=== PATIENT | female | born 1995 | race Caucasian/White ===

== ENCOUNTER → 2017-06-08 | Outpatient (CLI) | payer OTHER ==
[2017-06-08 06:39] LABS: BASO % 0.7 % (0.0-1.0); EOS # 0.1 K/mm3 (0.0-0.50); EOS % 2.7 % (0.0-3.0); LARGE UNSTAINED CELL # 0.1 K/mm3 (0.0-0.4); LARGE UNSTAINED CELL % 1.8 % (0.0-4.0); LYMPH # 2.4 K/mm3 (1.5-6.5); LYMPH % 45.6 % (24.0-44.0); MEAN CORPUSCULAR HEMOGLOBIN 30.4 pg (27.0-33.0); MEAN CORPUSCULAR HGB CONC 34.1 g/dl (32.0-36.5); MEAN CORPUSCULAR VOLUME 89.3 fl (80.0-96.0); MONO # 0.3 K/mm3 (0.0-0.8); MONO % 4.9 % (0.0-5.0); NEUTROPHILS # 2.3 K/mm3 (1.8-7.7); NEUTROPHILS % 44.4 % (36.0-66.0); PLATELET COUNT, AUTOMATED 226 k/mm3 (150-450); RED CELL DISTRIBUTION WIDTH 13.4 % (11.5-14.5); WHITE BLOOD COUNT 5.2 K/mm3 (4.0-10.0)
[2017-06-08 07:31] LABS: ANION GAP 7 MEQ/L (8-16); BLOOD UREA NITROGEN 12 MG/DL (7-18); CARBON DIOXIDE LEVEL 28 MEQ/L (21-32); CHLORIDE LEVEL 106 MEQ/L (98-107); FREE T4 1.04 NG/DL (0.76-1.46); GLOMERULAR FILTRATION RATE > 60.0 (>60); GLUCOSE, FASTING 82 MG/DL (70-105); POTASSIUM SERUM 4.3 MEQ/L (3.5-5.1); SODIUM LEVEL 141 MEQ/L (136-145)
[2017-06-10 00:07] LABS: Lyme Disease IgG/IgM Antibodie <0.91 ISR (0.00-0.90); Lyme Disease IgM Ab Quantitati <0.80 index (0.00-0.79)
== END ==
LOC: M LAB 06:15
PROVIDERS: ATTEND Physician Assistant
DX: Z00.00 Encounter for general adult medical examination without abnormal findings (principal); R53.83 Other fatigue

== ENCOUNTER → 2017-07-05 | Outpatient (CLI) | payer OTHER ==
[2017-07-12 00:11] LABS: STREP PNEUMO TYPE 12F <0.3 ug/mL (>1.3); STREP PNEUMO TYPE 18C 0.8 ug/mL (>1.3); STREP PNEUMO TYPE 19A 1.6 ug/mL (>1.3); STREP PNEUMO TYPE 19F 5.2 ug/mL (>1.3); STREP PNEUMO TYPE 23F <0.3 ug/mL (>1.3); STREP PNEUMO TYPE 6B 0.7 ug/mL (>1.3); STREP PNEUMO TYPE 7F 8.3 ug/mL (>1.3); STREP PNEUMO TYPE 9N 2.1 ug/mL (>1.3); STREP PNEUMO TYPE 9V 0.5 ug/mL (>1.3)
== END ==
LOC: M WUC 16:24
PROVIDERS: ATTEND Physician Assistant
DX: J30.9 Allergic rhinitis, unspecified (principal)

== ENCOUNTER → 2018-08-09 | Outpatient (REF) | payer OTHER | LOC: M LAB REF 17:44 | DX: N76.0 Acute vaginitis (principal) ==

== ENCOUNTER → 2020-05-12 | Outpatient (CLI) | payer OTHER ==
--- NOTE | 2020-05-12 14:09 | REP ---
LEFT SHOULDER, THREE VIEWS: There is no evidence of an acute fracture, dislocation or intrinsic bone disease. IMPRESSION: No fracture or dislocation. Electronically Signed by Sid Gibson MD 05/12/2020 07:32 P
== END ==
LOC: M WUC 11:12
PROVIDERS: ATTEND Physician Assistant
DX: M25.512 Pain in left shoulder (principal)

== ENCOUNTER → 2022-12-08 | Outpatient (REF) | payer BC | LOC: M PLALAB 17:04 | PROVIDERS: ATTEND Nurse Practitioner Family | DX: Z12.4 Encounter for screening for malignant neoplasm of cervix (principal) ==

== ENCOUNTER → 2022-12-22 | Outpatient (CLI) | payer BC ==
[2022-12-22 15:06] LABS: ALBUMIN 4.4 G/DL (3.2-5.2); ALKALINE PHOSPHATASE 60 U/L (46-116); ALT/SGPT 14 U/L (7.0-40); AST/SGOT 19 U/L (<34); BASO % 0.8 % (0.0-1.0); BILIRUBIN,TOTAL 0.6 MG/DL (0.3-1.2); BLOOD UREA NITROGEN 10 MG/DL (9-23); CALCIUM LEVEL 9.6 MG/DL (8.5-10.1); CARBON DIOXIDE LEVEL 28 MMOL/L (20-31); CHLORIDE LEVEL 108 MMOL/L (98-107); CHOLESTEROL LEVEL 187 MG/DL (<200); CHOLESTEROL RISK RATIO 3.05 (<5); EOS # 0.4 10^3/uL (0.0-0.5); EOS % 8.7 % (0.0-3.0); GLOMERULAR FILTRATION RATE > 60.0 (>60); GLUCOSE, FASTING 87 MG/DL (60-100); HDL CHOLESTEROL 61.3 MG/DL (>40); HEMATOCRIT 44.3 % (36.0-47.0); HEMOGLOBIN 14.7 g/dl (12.0-15.5); LDL CHOLESTEROL 114.7 MG/DL (<100); LYMPH # 1.6 10^3/uL (1.5-5.0); LYMPH % 33.8 % (24.0-44.0); MEAN CORPUSCULAR HEMOGLOBIN 30.4 pg (27.0-33.0); MEAN CORPUSCULAR HGB CONC 33.2 g/dl (32.0-36.5); MEAN CORPUSCULAR VOLUME 91.7 fl (80.0-96.0); MONO # 0.4 10^3/uL (0.0-0.8); MONO % 7.8 % (2.0-8.0); NEUTROPHILS # 2.3 10^3/uL (1.5-8.5); NEUTROPHILS % 48.7 % (36.0-66.0); NON-HDL-C 126 MG/DL; PLATELET COUNT, AUTOMATED 253 10^3/uL (150-450); POTASSIUM SERUM 4.9 MMOL/L (3.5-5.1); RED BLOOD COUNT 4.83 10^6/uL (4.00-5.40); SODIUM LEVEL 142 MMOL/L (136-145); TOTAL PROTEIN 6.8 G/DL (5.7-8.2); TRIGLYCERIDES LEVEL 55 MG/DL (<150); WHITE BLOOD COUNT 4.7 10^3/uL (4.0-10.0)
[2022-12-22 15:08] LABS: FREE T4 1.02 NG/DL (0.89-1.76); THYROID STIMULATING HORMONE 1.091 uIU/ML (0.55-4.78)
== END ==
LOC: M PLALAB 11:05
PROVIDERS: ATTEND Family Medicine
DX: Z13.29 Encounter for screening for other suspected endocrine disorder (principal)

== ENCOUNTER 2023-05-05 09:03 | Day surgery (SDC) | payer BC ==
[~2023-05-05] VITALS: Ht 160 cm; Wt 65.8 kg
[2023-05-05] MEDS: NS 1,000 ML IV ONE (06:00)
[~2023-05-05 09:03] MED LIST: CELE10TA PO; PRENTAB53 PO; PROA1AER2 INH
[2023-05-05] MEDS ORDERED: propofoL 200 MG/20 ML VIAL As Ordered ONE ×3 (11:04→12:02)
[2023-05-05] MEDS ORDERED: LIDOCAINE 2% 100MG/5ML SDV (FOR ANES.) As Ordered ONE (11:04)
[2023-05-05 12:32] VITALS: BP 106/61; O2SAT 97
== END 2023-05-05 12:45 | disposition home or self-care (01) ==
LOC: M OPP 09:03
PROVIDERS: ATTEND Internal Medicine Gastroenterology
DX: K63.5 Polyp of colon (principal); Q43.8 Other specified congenital malformations of intestine; K64.8 Other hemorrhoids

== ENCOUNTER → 2023-12-09 | Outpatient (CLI) | payer BC, OTHER | LOC: M PLALAB 12:02 | PROVIDERS: ATTEND Advanced Practice Midwife | DX: O20.9 Hemorrhage in early pregnancy, unspecified (principal); Z3A.00 Weeks of gestation of pregnancy not specified ==

== ENCOUNTER → 2024-01-02 | Outpatient (REF) | payer BC, OTHER | LOC: M SFHCWAGY 18:08 | PROVIDERS: ATTEND Nurse Practitioner Family | DX: Z12.4 Encounter for screening for malignant neoplasm of cervix (principal) | CPT/HCPCS: 87624; G0123 ==

== ENCOUNTER → 2024-01-20 | Outpatient (CLI) | payer BC, OTHER ==
[2024-01-20 18:05] LABS: BASO # 0.1 10^3/uL (0.0-0.2); BASO % 0.7 % (0.0-1.0); EOS # 0.1 10^3/uL (0.0-0.5); EOS % 0.7 % (0.0-3.0); HEMATOCRIT 42.1 % (36.0-47.0); HEMOGLOBIN 14.2 g/dl (12.0-15.5); MEAN CORPUSCULAR HEMOGLOBIN 30.6 pg (27.0-33.0); MEAN CORPUSCULAR HGB CONC 33.7 g/dl (32.0-36.5); MEAN CORPUSCULAR VOLUME 90.7 fl (80.0-96.0); MONO # 0.4 10^3/uL (0.0-0.8); MONO % 4.9 % (2.0-8.0); NEUTROPHILS # 4.9 10^3/uL (1.5-8.5); NEUTROPHILS % 66.4 % (36.0-66.0); PLATELET COUNT, AUTOMATED 258 10^3/uL (150-450); RED BLOOD COUNT 4.64 10^6/uL (4.00-5.40); WHITE BLOOD COUNT 7.4 10^3/uL (4.0-10.0)
[2024-01-20 18:24] LABS: ALBUMIN 4.4 G/DL (3.2-5.2); ALKALINE PHOSPHATASE 65 U/L (46-116); ALT/SGPT 12 U/L (7.0-40); AST/SGOT 14 U/L (<34); BILIRUBIN,TOTAL 0.5 MG/DL (0.3-1.2); BLOOD UREA NITROGEN 14 MG/DL (9-23); CALCIUM LEVEL 9.6 MG/DL (8.5-10.1); CARBON DIOXIDE LEVEL 30 MMOL/L (20-31); CHLORIDE LEVEL 103 MMOL/L (98-107); CREATININE FOR GFR 0.92 MG/DL (0.55-1.30); FREE T4 1.12 NG/DL (0.89-1.76); GLOMERULAR FILTRATION RATE > 60.0 (>60); GLUCOSE, FASTING 127 MG/DL (60-100); POTASSIUM SERUM 3.9 MMOL/L (3.5-5.1); SODIUM LEVEL 138 MMOL/L (136-145); THYROID STIMULATING HORMONE 0.746 uIU/ML (0.55-4.78); TOTAL PROTEIN 6.7 G/DL (5.7-8.2)
[2024-01-20 18:25] LABS: FOLLICLE STIMULATING HORMONE 3.6 mIU/ML; LUTEINIZING HORMONE 5.8 mIU/ML
[2024-01-20 18:26] LABS: ESTRADIOL 141.3 PG/ML; PROLACTIN 5.08 NG/ML
== END ==
LOC: M WUC 14:38
PROVIDERS: ATTEND Nurse Practitioner Family
DX: Z30.9 Encounter for contraceptive management, unspecified (principal); N92.0 Excessive and frequent menstruation with regular cycle; Z30.09 Encounter for other general counseling and advice on contraception

== ENCOUNTER → 2024-11-20 | Outpatient (CLI) | payer BC, OTHER ==
[2024-11-20 16:32] LABS: ESTRADIOL 325.1 PG/ML
[2024-11-20 16:33] LABS: PROGESTERONE 21.94 NG/ML
== END ==
LOC: M WUC 12:22
PROVIDERS: ATTEND Obstetrics & Gynecology Reproductive Endocrinology
DX: Z31.49 Encounter for other procreative investigation and testing (principal)

== ENCOUNTER → 2024-11-27 | Outpatient (REF) | payer OTHER ==
[2024-11-27 13:59] LABS: HCG, SERUM QUANTITATIVE < 2.6 MIU/ML (<4.2)
[2024-11-27 14:03] LABS: PROGESTERONE 6.03 NG/ML
== END ==
LOC: M LABDRWAD 12:28
PROVIDERS: ATTEND Obstetrics & Gynecology Reproductive Endocrinology
DX: Z32.00 Encounter for pregnancy test, result unknown (principal)

== ENCOUNTER → 2025-02-28 | Outpatient (CLI) | payer BC | LOC: M WHC 07:01 | PROVIDERS: ATTEND Nurse Practitioner Family | DX: N63.10 Unspecified lump in the right breast, unspecified quadrant (principal) ==

== ENCOUNTER → 2025-03-18 | Outpatient (CLI) | payer BC ==
[2025-03-18 09:35] LABS: HCG, SERUM QUANTITATIVE 724.8 MIU/ML (<4.2)
[2025-03-18 09:40] LABS: ESTRADIOL 389.5 PG/ML; THYROID STIMULATING HORMONE 1.292 uIU/ML (0.55-4.78)
[2025-03-18 09:41] LABS: PROGESTERONE 11.65 NG/ML
== END ==
LOC: M LAB 08:26
PROVIDERS: ATTEND Obstetrics & Gynecology Reproductive Endocrinology
DX: Z32.01 Encounter for pregnancy test, result positive (principal)

== ENCOUNTER → 2025-05-27 | Outpatient (CLI) | payer BC ==
[2025-05-27 12:16] LABS: LUTEINIZING HORMONE 3.6 mIU/ML; PROGESTERONE 1.23 NG/ML
[2025-05-27 12:46] LABS: ESTRADIOL 4490.5 PG/ML
== END ==
LOC: M RAD 09:30
PROVIDERS: ATTEND Obstetrics & Gynecology Reproductive Endocrinology
DX: Z31.83 Encounter for assisted reproductive fertility procedure cycle (principal)

== ENCOUNTER → 2025-08-29 | Outpatient (REF) | payer BC | LOC: M PLALAB 09:06 | PROVIDERS: ATTEND Obstetrics & Gynecology | DX: Z01.419 Encounter for gynecological examination (general) (routine) without abnormal findings (principal) ==

== ENCOUNTER → 2025-09-16 | Outpatient (REF) | payer BC, OTHER ==
[2025-09-16 09:03] LABS: ESTRADIOL 1712.6 PG/ML
[2025-09-16 09:04] LABS: PROGESTERONE 38.19 NG/ML
== END ==
LOC: M LAB REF 08:09
PROVIDERS: ATTEND Obstetrics & Gynecology Reproductive Endocrinology
DX: Z31.49 Encounter for other procreative investigation and testing (principal)

== ENCOUNTER → 2025-09-20 | Outpatient (REF) | payer BC ==
[2025-09-20 08:34] LABS: HCG, SERUM QUANTITATIVE 149.6 MIU/ML (<4.2)
[2025-09-20 08:38] LABS: PROGESTERONE 32.68 NG/ML
== END ==
LOC: M LAB REF 07:48
PROVIDERS: ATTEND Obstetrics & Gynecology Reproductive Endocrinology
DX: Z32.00 Encounter for pregnancy test, result unknown (principal)

== ENCOUNTER → 2025-09-24 | Outpatient (REF) | payer BC ==
[2025-09-24 08:33] LABS: HCG, SERUM QUANTITATIVE 824.0 MIU/ML (<4.2)
[2025-09-24 08:36] LABS: ESTRADIOL 2242.2 PG/ML
[2025-09-24 08:37] LABS: PROGESTERONE 35.6 NG/ML
== END ==
LOC: M LAB REF 07:48
PROVIDERS: ATTEND Obstetrics & Gynecology Reproductive Endocrinology
DX: Z32.01 Encounter for pregnancy test, result positive (principal)

== ENCOUNTER → 2025-11-07 | Outpatient (CLI) | payer BC ==
[2025-11-07 15:38] LABS: PLATELET COUNT, AUTOMATED 308 10^3/uL (150-450)
[2025-11-07 16:30] LABS: HIV 1&2 SCREEN NEGATIVE (NEGATIVE)
[2025-11-07 16:38] LABS: HEPATITIS C VIRUS ABY INDEX 0.06 INDEX (<0.8)
[2025-11-07 16:41] LABS: Trichomonas vaginalis (AMP) NOT DETECTED (NEGATIVE)
[2025-11-07 17:04] LABS: GC DNA AMPLIFICATION NEGATIVE (NEGATIVE)
== END ==
LOC: M PLALAB 14:08
PROVIDERS: ATTEND Advanced Practice Midwife
DX: O09.811 Supervision of pregnancy resulting from assisted reproductive technology, first trimester (principal); Z3A.00 Weeks of gestation of pregnancy not specified